=== PATIENT | female | born 1975 | race Caucasian/White ===

== ENCOUNTER 2017-04-06 10:36 | Inpatient (IN) | payer OTHER ==
[2017-04-06] MEDS ORDERED: ONDANSETRON HCL INJ/PF 4 MG/2 ML SDV IV ONE ×2 (11:39→14:02)
[2017-04-06] MEDS ORDERED: HYDROMORPHONE HCL INJ/PF 2 MG/ML AMPULE IV ONE (11:39)
[2017-04-06] MEDS ORDERED: NORMAL SALINE 1000 ML 1,000 ML IV PRN ×2 (11:39→15:59)
--- NOTE | 2017-04-06 11:43 | ER Document Report ---
ED Medical Screen (RME) - General Chief Complaint: Abdominal Pain Stated Complaint: NAUSEA/WEAKNESS Time Seen by Provider: 04/06/17 11:33 Mode of Arrival: Ambulatory Information source: [facility], [facility] TRAVEL OUTSIDE OF THE [place] IN LAST 30 DAYS: No - HPI Onset: Other - 4 days Onset/Duration: Gradual, Constant Quality of pain: Dull Severity: Moderate Associated Symptoms: Nausea, Vomiting Exacerbated by: Denies Relieved by: Denies Notes: 04/06/17 11:40 Patient is a healthy 41-year-old female who does not drink alcohol. Patient presents with a four-day history of worsening right upper quadrant abdominal pain associated with nausea and vomiting along with yellow colored sclera and yellow tinted skin. Patient denies any prior history of liver problems in the past. Patient denies any excess excess acetaminophen use. No recent travel, bad food exposure. Patient went to the [facility] yesterday and was told to come to the emergency department here for further management. She had not any fevers or chills. - Related Data Allergies/Adverse Reactions: hydrocodone bitartrate [From Vicodin] Allergy (Verified 04/06/17 10:45) morphine [Morphine] Allergy (Verified 04/06/17 10:45) Past Medical History - General Information source: Patient, [facility] Records - Social History Chew tobacco use (# tins/day): No Frequency of alcohol use: Rare Drug Abuse: None Neurological Medical History: Denies: Hx Seizures Renal/ Medical History: Reports: Hx Kidney Stones. Denies: Hx Peritoneal Dialysis Musculoskeltal Medical History: Reports Hx Fibromyalgia Psychiatric Medical History: Reports: Hx Attention Deficit Hyperactivity Disorder, Hx Bipolar Disorder Traumatic Medical History: Reports: Hx Fractures Past Surgical History: Reports: Hx Abdominal Surgery - diverticulum, Hx Genitourinary Surgery - urethra-2005,, Hx Gynecologic Surgery - anterior repair with sling, Hx Hysterectomy - 2009. Denies: Hx Pacemaker - Immunizations Immunizations up to date: Yes Hx Diphtheria, Pertussis, Tetanus Vaccination: Yes Review of Systems - Review of Systems Gastrointestinal: Abdominal pain, Nausea, Vomiting Skin: Change in color -: Yes All other systems reviewed and negative Physical Exam - Vital signs Vitals: Temp Pulse Resp BP Pulse Ox 97.8 F 109 H 20 105/61 98 04/06/17 10:45 04/06/17 10:45 04/06/17 10:45 04/06/17 10:45 04/06/17 10:45 Interpretation: Normal - General General appearance: Appears well, Alert - HEENT Head: Normocephalic, Atraumatic Eyes: Normal Conjunctiva: Icteric Pupils: PERRL - Respiratory Respiratory status: No respiratory distress Chest status: Nontender Breath sounds: Normal Chest palpation: Normal - Cardiovascular Rhythm: Regular Heart sounds: Normal auscultation Murmur: No - Abdominal Inspection: Normal Distension: No distension, Other Tenderness: Tender - Right upper quadrant. No: Guarding, Rebound - Extremities General upper extremity: Normal inspection, Nontender, Normal color, Normal ROM , Normal temperature General lower extremity: Normal inspection, Nontender, Normal color, Normal ROM , Normal temperature, Normal weight bearing. No: Kathy's sign - Neurological Neuro grossly intact: Yes Cognition: Normal Orientation: AAOx4 Mendenhall Coma Scale Eye Opening: Spontaneous Esther Coma Scale Verbal: Oriented Mendenhall Coma Scale Motor: Obeys Commands Mendenhall Coma Scale Total: 15 Speech: Normal Motor strength normal: LUE, RUE, LLE, RLE Sensory: Normal - Skin Skin Temperature: Warm Skin Moisture: Dry Skin Color: Jaundiced Course - Re-evaluation Re-evalutation: 04/06/17 11:42 Patient with new onset scleral icterus, jaundiced appearing skin. Likely related to common bile duct problem. Patient will require labs, ultrasound, and further management and disposition by ED provider in the back treatment area. - Vital Signs Vital signs: Temp Pulse Resp BP Pulse Ox 97.8 F 109 H 20 105/61 98 04/06/17 10:45 04/06/17 10:45 04/06/17 10:45 04/06/17 10:45 04/06/17 10:45
[2017-04-06 12:21] LABS: PROTHROMBIN TIME 14.1 SEC (11.4-15.4)
[2017-04-06 12:27] LABS: HEMATOCRIT 44.9 % (36.0-47.0); HEMOGLOBIN 14.6 g/dL (12.0-15.5); HGB HCT DIFFERENCE -1.1; MEAN CORPUSCULAR HEMOGLOBIN 29.1 pg (27.0-33.4); MEAN CORPUSCULAR HGB CONC 32.5 g/dL (32.0-36.0); MEAN CORPUSCULAR VOLUME 89 fl (80-97); RED BLOOD COUNT 5.02 10^6/uL (3.72-5.28); RED CELL DISTRIBUTION WIDTH 16.5 % (11.5-14.0); WHITE BLOOD COUNT 9.9 10^3/uL (4.0-10.5)
--- NOTE | 2017-04-06 12:30 | ER Document Report ---
ED GI/ - General Chief Complaint: Abdominal Pain Stated Complaint: NAUSEA/WEAKNESS Time Seen by Provider: 04/06/17 11:33 Mode of Arrival: Ambulatory Notes: Patient says that she noticed that her skin was beginning to turn yellow 3 or 4 days ago. She is also noted her urine turning dark and she has had pain across the upper abdomen, slightly more so on the right side than the left side. She has been itching a lot and also felt very tired. She has been nauseated with a couple of vomiting, but mostly just nausea. She has had "stringy" looking stools. Think she may have had a fever the first couple of days, but not currently. Patient has never had this happen before. She does not drink alcohol. Has not been on any new medications. Patient says she did eat sushi from the grocery store about 1 week ago, last or Tuesday. PMH: Surgeries include hysterectomy, anterior abdominal tuck and bladder sling. Diverticulitis. PMH: ADHD. TRAVEL OUTSIDE OF THE [place] IN LAST 30 DAYS: No - Related Data Allergies/Adverse Reactions: hydrocodone bitartrate [From Vicodin] Allergy (Verified 04/06/17 10:45) morphine [Morphine] Allergy (Verified 04/06/17 10:45) Past Medical History - General Information source: Patient, [facility] Records - Social History Smoking Status: Current Every Day Smoker Chew tobacco use (# tins/day): No Frequency of alcohol use: Rare Drug Abuse: None Family History: Reviewed & Not Pertinent Patient has suicidal ideation: No Patient has homicidal ideation: No Neurological Medical History: Denies: Hx Seizures Renal/ Medical History: Reports: Hx Kidney Stones Musculoskeltal Medical History: Reports Hx Fibromyalgia Psychiatric Medical History: Reports: Hx Attention Deficit Hyperactivity Disorder, Hx Bipolar Disorder Traumatic Medical History: Reports: Hx Fractures Past Surgical History: Reports: Hx Abdominal Surgery - diverticulum, Hx Genitourinary Surgery - urethra-2005,, Hx Gynecologic Surgery - anterior repair with sling, Hx Hysterectomy - 2009. Denies: Hx Pacemaker - Immunizations Immunizations up to date: Yes Hx Diphtheria, Pertussis, Tetanus Vaccination: Yes Review of Systems - Review of Systems Notes: REVIEW OF SYSTEMS: CONSTITUTIONAL : Denies fever. EENT: Denies eye, ear, nose or mouth or throat pain or other symptoms. CARDIOVASCULAR: Denies chest pain. RESPIRATORY: Denies cough, chest congestion, or shortness of breath. GASTROINTESTINAL: See HPI. GENITOURINARY: Denies difficulty or painful urinating, urinary frequency, blood in urine. Urine very dark. MUSCULOSKELETAL: Denies back or neck pain. Denies joint pain or swelling. SKIN: Denies rash or skin lesions. See HPI. NEUROLOGICAL: Denies LOC or altered mental status. Denies headache. Denies sensory loss or motor deficits. ALL OTHER SYSTEMS REVIEWED AND NEGATIVE. Physical Exam - Vital signs Vitals: Temp Pulse Resp BP Pulse Ox 97.8 F 109 H 20 105/61 98 04/06/17 10:45 04/06/17 10:45 04/06/17 10:45 04/06/17 10:45 04/06/17 10:45 Interpretation: Normal, Tachycardic - Mild - Notes Notes: PHYSICAL EXAMINATION: GENERAL: Well-appearing, in no acute distress. Generalized yellow color of her skin, sclera, etc. HEAD: Atraumatic, normocephalic. EYES: Pupils equal round and reactive to light, extraocular movements intact. ENT: oropharynx clear without exudates. Moist mucous membranes. NECK: Normal range of motion, supple. LUNGS: Breath sounds clear and equal bilaterally. HEART: Regular rate and rhythm without murmurs. ABDOMEN: Soft, some tenderness in the right upper quadrant, but no guarding or rebound. BACK: No tenderness throughout entire back. EXTREMITIES: Normal range of motion without pain. NEUROLOGICAL: Normal speech, normal gait. Normal sensory, motor, and reflex exams. Awake, alert, and oriented x3. Cranial nerves normal. PSYCH: Normal mood, normal affect. SKIN: Warm, dry, no rashes. Generalized jaundice. Course - Re-evaluation Re-evalutation: 04/06/17 14:50 Patient's labs showed elevated bilirubin and mild elevation of her enzymes. Lipase normal. Spoke with hospitalist who will admit patient. - Vital Signs Vital signs: Temp Pulse Resp BP Pulse Ox 97.8 F 109 H 20 105/61 97 04/06/17 10:45 04/06/17 10:45 04/06/17 10:45 04/06/17 10:45 04/06/17 13:33 - Laboratory Result Diagrams: 04/06/17 11:55 04/06/17 11:55 Laboratory results interpreted by me: 04/06/17 04/06/17 04/06/17 11:53 11:55 11:55 RDW 16.5 H Band Neutrophils % 1 L Total Bilirubin 16.2 H Direct Bilirubin 14.3 H AST 1201 H ALT 1218 H Alkaline Phosphatase 189 H Total Protein 8.8 H Urine Blood SMALL H Urine Bilirubin MODERATE H Urine Urobilinogen 4.0 H Ur Leukocyte Esterase TRACE H Acetaminophen < 10 L - Diagnostic Test Radiology reviewed: Image reviewed, Reports reviewed - Ultrasound of the abdomen is normal. Discharge - Discharge Clinical Impression: Jaundice Condition: Stable Disposition: ADMITTED INPATIENT Admitting Provider: Hospitalist Unit Admitted: Telemetry
[2017-04-06 12:33] LABS: APPEARANCE,URINE SLIGHTLY-CLOUDY; BILIRUBIN,URINE MODERATE (NEGATIVE); GLUCOSE, URINE NEGATIVE (NEGATIVE); KETONES,URINE NEGATIVE (NEGATIVE); LEUKOCYTE ESTERASE,URINE TRACE (NEGATIVE); NITRITE,URINE NEGATIVE (NEGATIVE); PROTEIN,URINE NEGATIVE (NEGATIVE)
[2017-04-06 12:39] LABS: ALBUMIN 4.2 g/dL (3.5-5.0); ALKALINE PHOSPHATASE 189 U/L (38-126); ANION GAP 14 (5-19); BILIRUBIN,DIRECT 14.3 mg/dL (0.0-0.4); BILIRUBIN,TOTAL 16.2 mg/dL (0.2-1.3); BLOOD UREA NITROGEN 11 mg/dL (7-20); CALCIUM 9.7 mg/dL (8.4-10.2); CARBON DIOXIDE 30 mmol/L (22-30); CHLORIDE 100 mmol/L (98-107); CREATININE RESULT 0.55 mg/dL (0.52-1.25); GLUCOSE 109 mg/dL (75-110); LIPASE 46.5 U/L (23-300); POTASSIUM 3.9 mmol/L (3.6-5.0); SODIUM 143.6 mmol/L (137-145); TOTAL PROTEIN 8.8 g/dL (6.3-8.2)
[2017-04-06 12:50] LABS: ALANINE AMINOTRANSFERASE 1218 U/L (9-52); ASPARTATE AMINO TRANSFERASE 1201 U/L (14-36)
[2017-04-06 13:01] LABS: BAND NEUTROPHILS % (MANUAL) 1 % (3-5); BASOPHILS % (MANUAL) 1 % (0-2); EOSINOPHILS % (MANUAL) 1 % (0-6); LYMPHOCYTES % (MANUAL) 13 % (13-45); TOTAL CELLS COUNTED 100
[2017-04-06 13:02] LABS: ANISOCYTOSIS 1+; HYPOCHROMASIA 2+; ROULEAUX SLIGHT; TARGET CELLS 2+; TOXIC GRANULATION SLIGHT; TOXIC VACUOLATION PRESENT
--- NOTE | 2017-04-06 13:30 | RADIOLOGY REPORT (SQ) ---
EXAM DESCRIPTION: U/S ABDOMEN LIMITED W/O DOP COMPLETED DATE/TIME: 04/06/2017 1:13 pm REASON FOR STUDY: RUQ abd pain COMPARISON: None. TECHNIQUE: Dynamic and static grayscale images acquired of the abdomen and recorded on PACS. Additio nal selected color Doppler and spectral images recorded. LIMITATIONS: None. FINDINGS: PANCREAS: No masses. Visualized pancreatic duct normal caliber. LIVER: No masses. Echotexture normal. LIVER VASCULATURE: Normal directional flow of the main portal vein and hepatic veins. GALLBLADDER: No stones. Normal wall thickness. No pericholecystic fluid. ULTRASOUND-DETECTED BHARDWAJ'S SIGN: Negative. INTRAHEPATIC DUCTS AND COMMON DUCT: CBD and intrahepatic ducts normal caliber. No filling defects. INFERIOR VENA CAVA: Normal flow. AORTA: No aneurysm. RIGHT KIDNEY: Normal size. Normal echogenicity. No solid or suspicious masses. No hydronephrosis. No calcifications. PERITONEAL AND RIGHT PLEURAL SPACE: No ascites or effusions. OTHER: Images of the right lower quadrant are unremarkable. IMPRESSION: NORMAL RIGHT UPPER QUADRANT ULTRASOUND. TECHNICAL DOCUMENTATION: JOB ID: [id number]- All Rights Reserved
--- NOTE | 2017-04-06 14:49 | Progress Note ---
Provider Note Provider Note: ALBINA EDWARD Search Criteria: Last Name 'Albina' and First Name 'Neris' and = and Request Period = 10/08/16' to 04/06/17' - 3 out of 3 Recipients Selected. Fill Date Product, Str, Form Qty Days Pt ID Prescriber Written RX# N/R* Pharm MED+ ------ ---- --------- --- ------- ----- --------- ------ 03/31/2017 ZOLPIDEM TARTRATE 10 MG TABLET 15.00 30 [id number] 2016 [id number] N [id number] 00.0 02/09/2017 ZOLPIDEM TARTRATE 10 MG TABLET 15.00 30 [id number] 2016 [id number] N [id number] 00.0 02/08/2017 D-AMPHETAMINE ER 10 MG CAPSULE 90.00 30 [id number] 2016 [id number] N [id number] 00.0 *N/R N=New R=Refill +MED Daily Prescribers for prescriptions listed [id number] [facility]; [facility], [address] [place] [address] Pharmacies that dispensed prescriptions listed [id number] [facility]; [facility], [address] [place] [address],
[2017-04-06] MEDS ORDERED: OXYCODONE HCL IR 5 MG TABLET PO ONE (14:52)
[2017-04-06] MEDS ORDERED: PROMETHAZINE HCL 25 MG SUPP.RECT PR PRN (16:00)
[2017-04-06] MEDS ORDERED: NICOTINE 21 MG/24 HR PATCH.TD24 TD PRN (16:15)
[2017-04-06 17:04] LABS: URINE BARBITURATES SCREEN NEGATIVE; URINE OPIATES LOW UNCONFIRMED POSITIVE; URINE PHENCYCLIDINE SCREEN NEGATIVE
[2017-04-06 17:10] LABS: URINE METHADONE SCREEN NEGATIVE
--- NOTE | 2017-04-06 18:02 | PDOC CONSULTATION ---
Consultation Consult Date: 04/06/17 Attending physician:: MARY VICTORIA Consult reason:: Abnormal LFT's History of Present Illness Admission Date/PCP: 04/06/17 14:41 History of Present Illness: CHEYANNE MONTEMAYOR is a 41 year old female I am asked to see this patient by the Hospitalist service patient presented with jaundice with abdominal pain, nausea and vomiting patient has abnormal LFT , especially with transaminases> 1000 tylenol level was normal patient states has itching, has elevated total bilirubin but her alk phos is high too patient states does not drink no previous episodes Coagulation profile is normal denies sustaining any trauma patient did have some sushi in the past ultrasound does not show any dilated ducts patient has an MRCP pending there is a history of kidney stone as well patient denies consuming any other OTC products. Hepatitis panels are pending as well states that she always has had stomach trouble as well Past Medical History Neurological Medical History: Denies: Seizures Musculoskeltal Medical History: Reports: Fibromyalgia Psychiatric Medical History: Reports: Attention Deficit Hyperactivity Disorder, Bipolar Disorder Past Surgical History Past Surgical History: Reports: Hysterectomy - 2010 Denies: Pacemaker Social History Smoking Status: Current Every Day Smoker Frequency of Alcohol Use: None Hx Recreational Drug Use: No Hx Prescription Drug Abuse: No Family History Family History: Reviewed & Not Pertinent Parental Family History Reviewed: Yes Children Family History Reviewed: Unknown Sibling(s) Family History Reviewed.: Unknown Medication/Allergy Allergies/Adverse Reactions: hydrocodone bitartrate [From Vicodin] Allergy (Verified 04/06/17 10:45) morphine [Morphine] Allergy (Verified 04/06/17 10:45) Review of Systems Constitutional: ABSENT: fever(s), headache(s), night sweats, weakness Eyes: ABSENT: visual disturbances Ears: ABSENT: hearing changes Nose, Mouth, and Throat: ABSENT: mouth pain, sore throat Cardiovascular: ABSENT: edema, orthropnea, palpitations Respiratory: ABSENT: dyspnea, hemoptysis Gastrointestinal: PRESENT: nausea, vomiting. ABSENT: diarrhea, hematemesis, melena Genitourinary: ABSENT: dysuria, hematuria Musculoskeletal: ABSENT: joint swelling Integumentary: PRESENT: pruritus Neurological: ABSENT: syncope, tingling, tremor(s), vertigo Endocrine: ABSENT: polydipsia, polyphagia, polyuria Hematologic/Lymphatic: ABSENT: easy bruising Physical Exam Vital Signs: Temp Pulse Resp BP Pulse Ox 97.8 F 109 H 20 98/70 L 98 04/06/17 10:45 04/06/17 10:45 04/06/17 10:45 04/06/17 16:15 04/06/17 16:15 General appearance: PRESENT: no acute distress, cooperative, well-developed, well-nourished Head exam: PRESENT: atraumatic, normocephalic Eye exam: PRESENT: EOMI, PERRLA, scleral icterus. ABSENT: nystagmus, periorbital swelling Mouth exam: PRESENT: moist, neck supple Throat exam: ABSENT: tonsillar exudate, tonsillogmegaly Neck exam: ABSENT: meningismus, tenderness, thyromegaly Respiratory exam: PRESENT: symmetrical, unlabored. ABSENT: tachypnea, wheezes Cardiovascular exam: PRESENT: RRR, +S1, +S2 GI/Abdominal exam: PRESENT: soft. ABSENT: Gonzalez's sign, rebound, rigid, tenderness Extremities exam: ABSENT: joint swelling Musculoskeletal exam: PRESENT: full ROM Neurological exam: PRESENT: oriented to time, oriented to situation, reflexes normal, CN II-XII grossly intact Focused psych exam: ABSENT: restlessness Skin exam: PRESENT: jaundice. ABSENT: mottled, urticaria, vesicles Results Laboratory Results: 04/06/17 16:43 Ammonia 17.4 04/06/17 16:43 Creatine Kinase 26 L Impressions: Abdomen Ultrasound 04/06/17 11:38 IMPRESSION: NORMAL RIGHT UPPER QUADRANT ULTRASOUND. Assessment & Plan - Diagnosis (1) Jaundice Plan: transaminases tend to be a little lower for viral hepatitis however will continue to follow, results are pending would check for AMA as well since has elevated alk phos agree with MRCP as well to rule out stone disease there does not appear to have a obvious causative factor spoke with Ms Mosqueda with respect to the case will await results from tests that are already ordered - Time Time Spent: 50 to 70 Minutes
--- NOTE | 2017-04-06 21:09 | HISTORY AND PHYSICAL E ---
History and Physical NAME: CHEYANNE MONTEMAYOR : 1975 AGE: 41Y ADMITTED: 04/06/2017 ROOM: 436 PRIMARY CARE PROVIDER: MELITON. CHIEF COMPLAINT: Jaundice. HISTORY OF PRESENT ILLNESS: The patient is a 41-year-old female with a past medical history that is essentially unremarkable. The patient presented to the emergency department with what she describes is a 3-4 day history of increasing jaundice, abdominal pain, and nausea and vomiting. The patient stated that she had an abrupt onset of symptoms including fatigue, weakness as well as feeling itchy all over but no area of actual pruritus. The patient states that for the past 7 days that she had been preparing a large amount of raw salsa for her family to consume that included raw onions. She was uncertain of the source of these onions. The patient denied feeling that any particular meal was suspect; however, her symptoms have persisted. The patient denied any sick contacts. No one else has been sick. The patient still has her gallbladder. Upon presentation to the emergency department the patient was found to be tachycardic with a heart rate of 110, afebrile. The blood pressure was in a good range. Acetaminophen level was undetectable; however, her bilirubin was found to be 16.2 and her AST 1200, ALT also 1200 with an alkaline phosphatase of 189. The patient did have stat HIT panels drawn and has been referred to the hospital for admission and management. The patient's ultrasound was unremarkable. PAST MEDICAL HISTORY: Remarkable for: 1. Nephrolithiasis. 2. 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 3. Tobacco dependency. PAST SURGICAL HISTORY: Remarkable for: 1. Tubal ligation. 2. Ectopic . 3. Tummy tuck. 4. Bladder sling. ALLERGIES: 1. HYDROCODONE. 2. MORPHINE. HOME MEDICATIONS: 1. Iwka-xvx-sntcaex ibuprofen. 2. Hziw-qjv-trdktvd Tylenol as needed. SOCIAL HISTORY: The patient currently resides at home with her boyfriend, Dilcia Blackwood, who can be reached at [phone]. The patient has designated him as her surrogate decision maker given that she is estranged from her family. The patient is a smoker. She smokes approximately a pack a day for which she has for 25 years. The patient denies any alcohol abuse and rarely consumes alcohol at all. Denies any history of illicit drug use, no IV drug use ever. FAMILY MEDICAL HISTORY: Family medical history is very vague given the patient's estrangement from her family. However, she does make mention that she feels her mother has a lot of stomach issues. She did have 2 aunts who decreased of unknown cancers. The patient is unable to provide any history about any other family members due to estrangement. REVIEW OF SYSTEMS: CONSTITUTIONAL: The patient denies any fevers or chills, no dizziness, positive for weakness but has mentioned a decent appetite. INTEGUMENTARY: Denies any diaphoresis, rash or bruising. Positive for itching and jaundice. HEENT: Denies any vision or hearing loss, nasal drainage, sore throat, or headache. CARDIOVASCULAR: Denies any shortness of breath, chest pain, edema, or heart palpitations. RESPIRATORY: Denies any cough, sputum production or hemoptysis. GASTROINTESTINAL: Denies any hematemesis, constipation, melena, hematochezia. Positive for nausea, vomiting, diarrhea and abdominal pain. GENITOURINARY: Denies any hematuria, pyuria or dysuria. Does admit to dark colored urine. MUSCULOSKELETAL: Denies any acute or chronic joint pains. NEUROLOGIC: No seizures, tremors or loss of consciousness. HEMATOLOGICAL: The patient denies any gianni bleeding or easy bruising. ENDOCRINE: Denies any recent weight changes. PSYCHIATRIC: Denies suicidal or homicidal ideation. The rest of the review of the other organ systems is negative. PHYSICAL EXAMINATION: GENERAL: On examination, the patient is a well-developed, well-nourished 41-year-old female who is awake, alert and oriented to person, place, time and situation. She is verbal and conversational, ambulatory and does not appear to be in any acute distress. VITAL SIGNS: Temperature 97.8, pulse 109, respirations 20, blood pressure 105/61, oxygen saturation is 98% on room air. SKIN: Warm and dry. No rash. She is not diaphoretic or jaundiced. HEENT: Pupils are equal, round, and reactive to light and accommodation. Conjunctivae is pink. Sclerae is icteric. There are no mouth lesions. Tongue is midline. NECK: Supple. There is no JVD. No palpable lymphadenopathy or thyromegaly. CARDIOVASCULAR: Heart is regular. There is no murmur or rub. CHEST: Clear, symmetrical and unlabored. ABDOMEN: Diffusely tender. There is no area of focal tenderness. Mildly distended. Bowel sounds are present. There is palpable hepatomegaly. BACK: No CVA tenderness or sacral edema. EXTREMITIES: No clubbing, cyanosis or edema or peripheral signs of embolization. There are +2 pedal pulses are noted bilaterally. PSYCHIATRIC: Appropriate affect. Pleasant mood. NEUROLOGIC: Cranial nerves II-XII are grossly intact. DIAGNOSTICS: Labs are as follows: Hematology obtained on 04/06/2017: WBC 9.9, hemoglobin 14.6, hematocrit 44.9, platelet count is 416,000. Coagulation obtained on 04/06/2017: PT 14.1, INR 1.02. Chemistry obtained on 04/06/2017: Sodium 136, potassium 3.9, chloride 109, carbon dioxide 30, BUN 11, creatinine 0.75, glucose 109, calcium 9.7, bilirubin 16.2, direct bilirubin 14.3, AST 1201, ALT 1218, alk phos 189, total protein 8.8, albumin 4.2, lipase is 46.5. Urinalysis obtained on 04/06/2017: Color sia, appearance slightly cloudy, pH 6.0, specific gravity is 1.020, protein negative, glucose negative, ketones negative, occult blood small, nitrite negative, bilirubin moderate, urobilinogen 4.0, leukocyte esterase is trace, WBC 15, RBC 3, bacteria trace, epithelial squamous 15, mucus rare, ascorbic acid is negative. Toxicology obtained on 04/06/2017: Acetaminophen less than 10. Serology obtained on 04/06/2017: Hepatitis panel is pending. Abdominal ultrasound obtained on 04/06/2017 reveals a normal right upper quadrant ultrasound. IMPRESSION AND PLAN: 1. Abnormal LFTs with jaundice, possible acute hepatic failure. Fortunately, the patient's coags are unremarkable. The patient does have significant abdominal pain with nausea and vomiting as well. We will obtain a stat MRCP of the area and evaluate accordingly. We will await hepatitis panels and continue supportive therapy. The patient denies any trauma as well. Will consult GI for input and add on IgG as well and follow. Will aggressively hydrate, add IV p.r.n. antiemetics and IV pain medication. 2. Tobacco dependency. Spent 3 minutes discussing smoking cessation education. The patient declines any pharmacological intervention at this time, however, will add p.r.n. nicotine patch. 3. DVT Prophylaxis. The patient is ambulatory. Will add LUDWIG hose. Defer pharmacological prophylaxis given potential hepatic compromise. DISPOSITION: The patient is a FULL CODE. Pending patient's symptomatology and diagnostic findings, will evaluate in the a.m. Will admit the patient to inpatient telemetry, as the patient's expected length of stay will surpass 2 midnights. Time spent on this admission including assessment, plan, physical examination, patient education and research is 60 minutes. DICTATING PHYSICIAN: PATI EAGLE NP [id number] PHY#: [id number] ID: [id number] JOB#: [id number] ACCT: [id number] cc:PATI EAGLE NP >
--- NOTE | 2017-04-06 21:46 | RADIOLOGY REPORT (SQ) ---
EXAM DESCRIPTION: MRI ABDOMEN WITHOUT COMPLETED DATE/TIME: 04/06/2017 8:49 pm REASON FOR STUDY: MRCP-acute liver failure COMPARISON: None. TECHNIQUE: Noncontrast MRCP. Source and MIP images reviewed. LIMITATIONS: None. FINDINGS: GALLBLADDER: Normal. INTRAHEPATIC DUCTS: Nondilated. EXTRAHEPATIC DUCTS: Common duct is normal caliber. No dilatation of the pancreatic duct. No ductal filling defects noted. PANCREAS: Generally homogeneous, no gross mass or significant signal alteration. No surrounding infl ammatory changes or fluid. Pancreatic duct is normal. LIVER, SPLEEN, KIDNEYS, ADRENALS: No significant abnormality. VESSELS: No evidence of aneurysm. Grossly appropriate flow voids in the major vascular structures. LUNG BASES: Grossly clear. OTHER: No other significant finding. IMPRESSION: NORMAL HEPATOBILIARY SYSTEM. NO STONES OR COMMON DUCT ABNORMALITIES. TECHNICAL DOCUMENTATION: JOB ID: [id number] All Rights Reserved
[2017-04-06] MEDS: KETOROLAC TROMETHAMINE INJ/PF 30 MG/1 ML SDV IV PRN (23:05)
[2017-04-06] MEDS: ONDANSETRON HCL INJ/PF 4 MG/2 ML SDV IV PRN (23:05)
[2017-04-07 06:58] LABS: HEMATOCRIT 40.4 % (36.0-47.0); HEMOGLOBIN 13.6 g/dL (12.0-15.5); HGB HCT DIFFERENCE 0.4; MEAN CORPUSCULAR HEMOGLOBIN 29.4 pg (27.0-33.4); MEAN CORPUSCULAR HGB CONC 33.6 g/dL (32.0-36.0); MEAN CORPUSCULAR VOLUME 87 fl (80-97); RED BLOOD COUNT 4.63 10^6/uL (3.72-5.28); RED CELL DISTRIBUTION WIDTH 16.3 % (11.5-14.0); WHITE BLOOD COUNT 6.9 10^3/uL (4.0-10.5)
[2017-04-07 07:33] LABS: BLOOD UREA NITROGEN 8 mg/dL (7-20); CALCIUM 8.9 mg/dL (8.4-10.2); CREATININE RESULT 0.52 mg/dL (0.52-1.25); GLUCOSE 91 mg/dL (75-110)
[2017-04-07 07:34] LABS: ALANINE AMINOTRANSFERASE 844 U/L (9-52); ALBUMIN 3.3 g/dL (3.5-5.0); ALKALINE PHOSPHATASE 160 U/L (38-126); ANION GAP 8 (5-19); BILIRUBIN,DIRECT 11.2 mg/dL (0.0-0.4); CARBON DIOXIDE 26 mmol/L (22-30); CHLORIDE 109 mmol/L (98-107); LIPASE 47.2 U/L (23-300); SODIUM 143.4 mmol/L (137-145); TOTAL PROTEIN 6.9 g/dL (6.3-8.2)
[2017-04-07 07:54] LABS: BILIRUBIN,TOTAL 13.3 mg/dL (0.2-1.3)
[2017-04-07] MEDS: ONDANSETRON HCL INJ/PF 4 MG/2 ML SDV IV PRN ×3 (07:59→20:46)
[2017-04-07 08:06] LABS: ASPARTATE AMINO TRANSFERASE 826 U/L (14-36)
[2017-04-07] MEDS ORDERED: TRAZODONE HCL 50 MG TABLET PO PRN (08:08)
[2017-04-07] MEDS ORDERED: (PENDING PHARMACY ID) (Quetiapine Fumarate [Seroquel] 50 MG) PO PRN (08:08)
[2017-04-07] MEDS: KETOROLAC TROMETHAMINE INJ/PF 30 MG/1 ML SDV IV PRN (08:12)
[2017-04-07] MEDS ORDERED: QUETIAPINE FUMARATE 25 MG TABLET PO PRN (08:20)
[2017-04-07] MEDS ORDERED: NORMAL SALINE 1000 ML 1,000 ML IV PRN (08:21)
--- NOTE | 2017-04-07 08:59 | PROGRESS NOTE E ---
Progress Note NAME: CHEYANNE MONTEMAYOR : 1975 AGE: 41Y DATE: 04/07/2017 ROOM: 436 SUBJECTIVE: The patient is sitting up in bed. She states that she has had ongoing nausea throughout the night and still has significant number of stools. However, the patient generally feels a little better. The patient denies any shortness of breath, dizziness, chest pain, no fever or chills. The patient has been afebrile. Her blood pressures have been in a good range, and the patient does not voice any other concerns at this time. REVIEW OF SYSTEMS: Rest of review of systems is negative. MEDICATIONS: Medications have been reviewed. OBJECTIVE: GENERAL: The patient is a 41-year-old female who is awake, alert and oriented to person, place, time and situation. She is verbal, conversational, ambulatory and does to appear to be in any acute distress. VITAL SIGNS: Temperature is 98.0, pulse 65, respirations 18, blood pressure 135/59, oxygen saturation is 94% on room air. SKIN: Pale and dry. No rashes, not diaphoretic. HEENT: Pupils are equal, round, reactive to light and accommodation. Sclerae are icteric. NECK: There is no JVP. CARDIOVASCULAR: Heart is regular. There is no murmur or rub. CHEST: Clear, symmetrical, and unlabored. ABDOMEN: Diffusely tender, mildly distended but bowel sounds are present. BACK: No CVA tenderness or sacral edema. EXTREMITIES: No clubbing, cyanosis or edema. PSYCHIATRIC: Appropriate affect, pleasant mood. DIAGNOSTICS: Labs are as follows: Hematology obtained on 04/07/2017: WBC 6.9, hemoglobin 13.6, hematocrit 40.9, platelet count is 326,000. Chemistry obtained on 04/07/2017: Sodium 143, potassium 4.0, chloride 109, carbon dioxide 26, BUN 8, creatinine 0.52, glucose 91, calcium 8.9, bilirubin 13.3, direct bilirubin 11.2, AST 826, ALT 844, alk phos 160, CK 26, total protein 6.9, albumin 3.3, lipase is 47.2, immunoglobulin G is still pending. IMPRESSION AND PLAN: 1. ACUTE HEPATITIS. Feel this is most likely viral given that the patient's MRCP is unremarkable. The patient has been eating a large volume of raw onions, therefore, suspicion for hepatitis A. LFTs have improved overnight. Will continue supportive therapy including antiemetics. Will add probiotic given the patient's diarrhea as well as stool studies and follow. Do appreciate GI's input with this. 2. TOBACCO DEPENDENCY. Will continue p.r.n. nicotine patch. 3. ANXIETY. Will continue the patient's home medications. 4. DVT PROPHYLAXIS. The patient is ambulatory. Will continue LUDWIG hose. Will encourage the patient to ambulate t.i.d. in the hallway. DISPOSITION: The patient is a FULL CODE. Pending patient's symptomatology and diagnostic findings, will reevaluate in the a.m. Time spent on this admission including assessment, plan, physical examination, and patient education is 25 minutes. DICTATING PHYSICIAN: PATI EAGLE NP [id number] PHY#: [id number] ID: [id number] JOB#: [id number] ACCT: [id number] cc: >
[2017-04-07] MEDS: SERTRALINE HCL 50 MG TABLET PO SCH (09:27)
[2017-04-07] MEDS: OXCARBAZEPINE 150 MG TABLET PO SCH ×2 (09:28→17:56)
[2017-04-07] MEDS: TRAZODONE HCL 50 MG TABLET PO SCH (09:28)
[2017-04-07] MEDS: LACTOBACILLUS ACIDOPHILUS 250 MG TAB PO SCH ×2 (09:28→17:55)
[2017-04-07] MEDS ORDERED: KETOROLAC TROMETHAMINE INJ/PF 30 MG/1 ML SDV IV PRN (14:44)
--- NOTE | 2017-04-07 14:47 | PDOC PROGRESS REPORT ---
Subjective Progress Note for:: 04/07/17 Subjective:: Patient's liver enzymes have trended down this morning. Her MRCP findings are negative. There are no dilated biliary ducts. Her hepatitis panels are noted to have positive antibody for hepatitis C. She will need to have her HCV RNA to be quantified. Reflex testing for the genotype should also be done. Otherwise she is improved somewhat Still is otherwise jaundice Total bilirubin is down She still has itching Physical Exam Vital Signs: Temp Pulse Resp BP Pulse Ox 97.9 F 68 18 114/59 L 98 04/07/17 12:36 04/07/17 12:36 04/07/17 12:36 04/07/17 12:36 04/07/17 12:36 Intake & Output 04/06/17 04/07/17 04/08/17 06:59 06:59 06:59 Intake Total 1600 Balance 1600 Weight 82.4 kg General appearance: PRESENT: no acute distress, well-developed, well-nourished Head exam: PRESENT: atraumatic, normocephalic Eye exam: PRESENT: EOMI, PERRLA, scleral icterus. ABSENT: nystagmus, periorbital swelling Mouth exam: PRESENT: moist Throat exam: ABSENT: tonsillar exudate, tonsillogmegaly Neck exam: ABSENT: meningismus, tenderness, thyromegaly Respiratory exam: PRESENT: symmetrical, unlabored. ABSENT: tachypnea, wheezes Cardiovascular exam: PRESENT: RRR, +S1, +S2 GI/Abdominal exam: PRESENT: soft. ABSENT: rebound, rigid, tenderness Extremities exam: ABSENT: joint swelling Musculoskeletal exam: PRESENT: full ROM Neurological exam: PRESENT: alert, awake, oriented to person, oriented to place , oriented to time, oriented to situation Skin exam: PRESENT: normal color. ABSENT: mottled, pallor, petechiae Results Laboratory Results: 04/07/17 06:48 04/07/17 06:48 04/06/17 04/07/17 04/07/17 16:43 06:48 06:48 WBC 6.9 RBC 4.63 Hgb 13.6 Hct 40.4 MCV 87 MCH 29.4 MCHC 33.6 RDW 16.3 H Plt Count 326 Sodium 143.4 Potassium 4.0 Chloride 109 H Carbon Dioxide 26 Anion Gap 8 BUN 8 Creatinine 0.52 Est GFR ( Amer) > 60 Est GFR (Non-Af Amer) > 60 Glucose 91 Calcium 8.9 Total Bilirubin 13.3 H D AST 826 H ALT 844 H Alkaline Phosphatase 160 H Ammonia 17.4 Total Protein 6.9 Albumin 3.3 L Lipase 47.2 Stool Occult Blood Stool for White Cells 04/07/17 04/07/17 12:40 12:40 WBC RBC Hgb Hct MCV MCH MCHC RDW Plt Count Sodium Potassium Chloride Carbon Dioxide Anion Gap BUN Creatinine Est GFR ( Amer) Est GFR (Non-Af Amer) Glucose Calcium Total Bilirubin AST ALT Alkaline Phosphatase Ammonia Total Protein Albumin Lipase Stool Occult Blood NEGATIVE Stool for White Cells NO WBCs SEEN 04/06/17 16:43 Creatine Kinase 26 L Impressions: Abdomen MRI 04/06/17 00:00 IMPRESSION: NORMAL HEPATOBILIARY SYSTEM. NO STONES OR COMMON DUCT ABNORMALITIES. Abdomen Ultrasound 04/06/17 11:38 IMPRESSION: NORMAL RIGHT UPPER QUADRANT ULTRASOUND. Assessment & Plan - Diagnosis (1) Jaundice Plan: For further testing showed a positive hepatitis C antibody. As noted above will need to check for HCV RNA as well as a genotype the operating is positive. MRCP is negative for retained stone. Other hepatitis panel negative. LFTs are trending down. She can be started on doxepin for itching. The liver functions continue to drop she likely can be discharged and followed as an outpatient. She likely will be a candidate for Harvoni treatment. We will continue to follow. - Time Time Spent with patient: 15-24 minutes
[2017-04-07] MEDS: OXYCODONE HCL IR 5 MG TABLET PO PRN ×2 (15:52→20:46)
[2017-04-07] MEDS: NICOTINE 21 MG/24 HR PATCH.TD24 TD PRN (15:53)
[2017-04-08] MEDS: OXYCODONE HCL IR 5 MG TABLET PO PRN ×5 (02:13→21:28)
[2017-04-08] MEDS: ONDANSETRON HCL INJ/PF 4 MG/2 ML SDV IV PRN ×5 (02:13→21:28)
[2017-04-08 05:02] LABS: HEMATOCRIT 35.4 % (36.0-47.0); HEMOGLOBIN 11.9 g/dL (12.0-15.5); HGB HCT DIFFERENCE 0.3; MEAN CORPUSCULAR HEMOGLOBIN 29.5 pg (27.0-33.4); MEAN CORPUSCULAR HGB CONC 33.7 g/dL (32.0-36.0); MEAN CORPUSCULAR VOLUME 88 fl (80-97); RED BLOOD COUNT 4.04 10^6/uL (3.72-5.28); RED CELL DISTRIBUTION WIDTH 16.5 % (11.5-14.0); WHITE BLOOD COUNT 8.4 10^3/uL (4.0-10.5)
[2017-04-08 05:05] LABS: PROTHROMBIN TIME 14.2 SEC (11.4-15.4)
[2017-04-08 05:26] LABS: ALANINE AMINOTRANSFERASE 682 U/L (9-52); ALKALINE PHOSPHATASE 138 U/L (38-126); ANION GAP 8 (5-19); ASPARTATE AMINO TRANSFERASE 639 U/L (14-36); BILIRUBIN,DIRECT 9.4 mg/dL (0.0-0.4); BLOOD UREA NITROGEN 10 mg/dL (7-20); CALCIUM 8.6 mg/dL (8.4-10.2); CARBON DIOXIDE 25 mmol/L (22-30); CHLORIDE 107 mmol/L (98-107); GLUCOSE 103 mg/dL (75-110); LIPASE 136.9 U/L (23-300); SODIUM 140.3 mmol/L (137-145); TOTAL PROTEIN 6.3 g/dL (6.3-8.2)
[2017-04-08 05:36] LABS: BILIRUBIN,TOTAL 10.8 mg/dL (0.2-1.3)
--- NOTE | 2017-04-08 09:50 | PDOC PROGRESS REPORT ---
Subjective Progress Note for:: 04/08/17 Subjective:: Further decline in her liver functions are noted this morning with a total bilirubin trending down. She may have acute hepatitis C as a cause for her abnormal liver functions along with her jaundice. She can be followed as an outpatient after no other issues We will need Fibrosure test to be done. She may be a candidate for Harvoni treatment. Physical Exam Vital Signs: Temp Pulse Resp BP Pulse Ox 97.7 F 63 17 114/92 H 99 04/08/17 07:28 04/08/17 07:28 04/08/17 07:28 04/08/17 07:28 04/08/17 07:28 Intake & Output 04/07/17 04/08/17 04/09/17 06:59 06:59 06:59 Intake Total 1600 2847 Balance 1600 2847 Weight 82.4 kg 83.2 kg General appearance: PRESENT: no acute distress, well-developed, well-nourished Head exam: PRESENT: atraumatic, normocephalic Eye exam: PRESENT: EOMI, PERRLA, scleral icterus Mouth exam: PRESENT: moist, neck supple Throat exam: ABSENT: tonsillar exudate, tonsillogmegaly Neck exam: ABSENT: meningismus, tenderness, thyromegaly Respiratory exam: PRESENT: clear to auscultation wicho, symmetrical, unlabored. ABSENT: tachypnea Cardiovascular exam: PRESENT: RRR, +S1, +S2 Pulses: PRESENT: normal carotid pulses GI/Abdominal exam: PRESENT: soft. ABSENT: Gonzalez's sign, rebound, rigid, tenderness Musculoskeletal exam: PRESENT: full ROM Neurological exam: PRESENT: alert, awake, oriented to time, oriented to situation, reflexes normal, CN II-XII grossly intact Skin exam: PRESENT: jaundice. ABSENT: mottled, urticaria, vesicles Results Laboratory Results: 04/08/17 04:47 04/08/17 04:42 04/07/17 04/07/17 04/08/17 12:40 12:40 04:42 WBC RBC Hgb Hct MCV MCH MCHC RDW Plt Count Sodium 140.3 Potassium 4.0 Chloride 107 Carbon Dioxide 25 Anion Gap 8 BUN 10 Creatinine 0.60 Est GFR ( Amer) > 60 Est GFR (Non-Af Amer) > 60 Glucose 103 Calcium 8.6 Total Bilirubin 10.8 H D AST 639 H ALT 682 H Alkaline Phosphatase 138 H Total Protein 6.3 Albumin 3.0 L Lipase 136.9 Stool Occult Blood NEGATIVE Stool for White Cells NO WBCs SEEN 04/08/17 04:47 WBC 8.4 RBC 4.04 Hgb 11.9 L Hct 35.4 L MCV 88 MCH 29.5 MCHC 33.7 RDW 16.5 H Plt Count 299 Sodium Potassium Chloride Carbon Dioxide Anion Gap BUN Creatinine Est GFR ( Amer) Est GFR (Non-Af Amer) Glucose Calcium Total Bilirubin AST ALT Alkaline Phosphatase Total Protein Albumin Lipase Stool Occult Blood Stool for White Cells 04/06/17 16:43 Creatine Kinase 26 L Impressions: Abdomen MRI 04/06/17 00:00 IMPRESSION: NORMAL HEPATOBILIARY SYSTEM. NO STONES OR COMMON DUCT ABNORMALITIES. Abdomen Ultrasound 04/06/17 11:38 IMPRESSION: NORMAL RIGHT UPPER QUADRANT ULTRASOUND. Assessment & Plan - Diagnosis (1) Jaundice Plan: Hepatitis C antibody positive. HCV RNA is pending along with genotype We will get Fibrosure May be a candidate for treatment of hepatitis C ,rest of the studies appear to be negative at this point; some are still pending Continue to follow If discharge can follow as outpatient - Time Time Spent with patient: 15-24 minutes
[2017-04-08] MEDS: SERTRALINE HCL 50 MG TABLET PO SCH (11:24)
[2017-04-08] MEDS: LACTOBACILLUS ACIDOPHILUS 250 MG TAB PO SCH ×2 (11:25→17:29)
[2017-04-08] MEDS: OXCARBAZEPINE 150 MG TABLET PO SCH ×2 (11:25→17:29)
[2017-04-08] MEDS: TRAZODONE HCL 50 MG TABLET PO SCH (11:26)
--- NOTE | 2017-04-08 15:43 | PROGRESS NOTE E ---
Progress Note NAME: CHEYANNE MONTEMAYOR : 1975 AGE: 41Y DATE: 04/08/2017 ROOM: 436 SUBJECTIVE: The patient is lying in bed. She states she has been very nauseous today, has had a lot of pain with ambulation. The patient has been quite tearful at the evidence of hepatitis C. I did explain the difference in hepatitis-C antibodies versus the active disease. However, given the patient's clinical picture, it does appear to be an acute case of hepatitis C. The patient is understanding of this, however, she also complains of nasal and sinus congestion which is new, and the patient does not voice any other concerns at this time. REVIEW OF SYSTEMS: The rest of the review of systems is negative. MEDICATIONS: Medications have been reviewed. OBJECTIVE: GENERAL: The patient is a 41-year-old female who is awake, alert and oriented to person, place, time, and situation. She is verbal, conversational, does not appear to be in any distress. VITAL SIGNS: As follows: Temperature is 97.9, pulse 61, respirations 18, blood pressure is 111/76, oxygen saturation 97% on room air. SKIN: Warm and dry. No rash. Not diaphoretic. The patient has still jaundice but improved. HEENT: Pupils equal, round, reactive to light and accommodation. Sclera is clearing of its icterus. CARDIOVASCULAR SYSTEM: Heart is regular. There is no murmur or rub. CHEST: Clear, symmetrical, unlabored. ABDOMEN: Soft, nontender, nondistended. BACK: No CVA tenderness, sacral edema. EXTREMITIES: No clubbing, cyanosis, edema. PSYCHIATRIC: Appropriate affect. Pleasant mood. DIAGNOSTICS: Lab values are as follows: Hematology obtained on hematology on 04/08/2017; WBCs are 8.4, hemoglobin is 11.9, hematocrit is 35.4, platelet count is 299,000. Chemistry obtained on 04/08/2017: Sodium is 140, potassium 4.0, chloride is 107, carbon dioxide 25, BUN 10, creatinine is 0.60, glucose 103, calcium is 8.6, bilirubin is 10.8, AST is 639, ALT is 682, alkaline phosphatase 138, CK 26, total protein 6.3, albumin 3.0, lipase is 136. IMPRESSION AND PLAN: 1. ACUTE HEPATITIS, MOST LIKELY HEPATITIS C. The patient still feels quite poorly and has had a significant amount of nausea with limited p.o. intake, therefore will continue supportive therapy of IV antibiotics, antiemetics, and probiotic therapy and monitor for another day. 2. TOBACCO DEPENDENCE. She will continue p.r.n. nicotine patch. 3. ANXIETY. Will continue home medications. 4. DVT PROPHYLAXIS. The patient is ambulatory. Will continue LUDWIG hose and encourage the patient to ambulate in the hallway. DISPOSITION: The patient is a FULL CODE. Pending patient's symptomatology and diagnostic findings, will re-evaluate in the a.m. Time spent on this followup including assessment, plan, physical examination, patient education, and much discussion is 35 minutes. DICTATING PHYSICIAN: PATI EAGLE NP [id number] PHY#: [id number] ID: [id number] JOB#: [id number] ACCT: [id number] cc:PATI EAGLE NP >
[2017-04-08] MEDS: NICOTINE 21 MG/24 HR PATCH.TD24 TD PRN (17:29)
[2017-04-09] MEDS: ONDANSETRON HCL INJ/PF 4 MG/2 ML SDV IV PRN ×2 (02:15→06:30)
[2017-04-09] MEDS: OXYCODONE HCL IR 5 MG TABLET PO PRN ×2 (02:15→06:30)
[2017-04-09 05:44] LABS: ALANINE AMINOTRANSFERASE 641 U/L (9-52); ALBUMIN 3.2 g/dL (3.5-5.0); ALKALINE PHOSPHATASE 160 U/L (38-126); ANION GAP 10 (5-19); ASPARTATE AMINO TRANSFERASE 657 U/L (14-36); BILIRUBIN,DIRECT 6.5 mg/dL (0.0-0.4); BILIRUBIN,TOTAL 7.8 mg/dL (0.2-1.3); BLOOD UREA NITROGEN 10 mg/dL (7-20); CALCIUM 8.6 mg/dL (8.4-10.2); CARBON DIOXIDE 26 mmol/L (22-30); CHLORIDE 105 mmol/L (98-107); CREATININE RESULT 0.59 mg/dL (0.52-1.25); GLUCOSE 103 mg/dL (75-110); POTASSIUM 3.7 mmol/L (3.6-5.0); SODIUM 140.8 mmol/L (137-145); TOTAL PROTEIN 6.9 g/dL (6.3-8.2)
[2017-04-09 09:04] VITALS: BP 111/87
[2017-04-09] MEDS: LACTOBACILLUS ACIDOPHILUS 250 MG TAB PO SCH (09:30)
[2017-04-09] MEDS: OXCARBAZEPINE 150 MG TABLET PO SCH (09:30)
[2017-04-09] MEDS: SERTRALINE HCL 50 MG TABLET PO SCH (09:31)
[2017-04-09] MEDS: TRAZODONE HCL 50 MG TABLET PO SCH (09:31)
--- NOTE | 2017-04-09 09:53 | DISCHARGE SUMMARY E ---
Discharge Summary NAME: CHEYANNE MONTEMAYOR : 1975 AGE: 41Y ADMITTED: 04/06/2017 DISCHARGED: 04/09/2017 CODE STATUS: FULL CODE. PRIMARY CARE PROVIDER: '[facility]. 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 Thakkar DISCHARGE DIAGNOSES: 1. ACUTE HEPATITIS. 2. POSITIVE HEPATITIS C ANTIBODIES WITH HIGH SUSPICION FOR ACUTE HEPATITIS. 3. TOBACCO DEPENDENCE. 4. ANXIETY. DISCHARGE MEDICATIONS: Include: 1. Ultram 50 mg p.o. q.4 hours, 20 tablets, 0 refill. 2. Zofran ODT 1-2 tablets sublingual q.4 hours p.r.n. 3. Ambien 5 mg p.o. at bedtime. 4. Trazodone 50 mg p.o. daily. 5. Trazodone 50 mg p.o. at bedtime. 6. Zoloft 50 mg p.o. daily. 7. Seroquel 50 mg at bedtime. 8. Trileptal 150 mg p.o. b.i.d. 9. Valium 10 mg p.o. 3 times a day p.r.n. 10. Adderall 30 mg p.o. daily p.r.n. DIET: As tolerated. ACTIVITY: As tolerated. DIAGNOSTICS: Lab values are as follows: Hematology on 04/08/2017, WBC 8.4, hemoglobin 12.9, hematocrit 35.4, platelet count 299,000. Coagulation done 04/08/2017: PT 14.2, INR 1.03. Chemistry obtained on 04/09/2017: Sodium 140, potassium 4.0, chloride 107, carbon dioxide 25, BUN 10, creatinine 0.59, glucose 103, calcium 8.6, total bilirubin 7.8, direct bilirubin 6.5, AST 607, ALT 641, alkaline phosphatase 160, ammonia 7.4, CK 26, total protein 6.9, albumin 3.2, lipase 136.9, immunoglobulin-G 1119. Urinalysis obtained on 04/06/2017: Color sia, appearance slightly cloudy, pH 6.0, specific gravity is 1.020, protein negative, glucose negative, ketones negative, occult blood small, nitrite negative, bilirubin moderate, urobilinogen 4.0, leukocyte esterase is trace, WBC 15, RBC 3, bacteria trace, epithelial squamous 15, mucus rare, ascorbic acid is negative. Obtained on 04/07/2017: Stool for occult blood is negative. Stool for WBC negative. Toxicology obtained on 04/06/2017 positive for opiates, benzo. Tylenol level less than 10. Immunology obtained 04/07/2017: Mitochondrial MT2 antibody is pending. Serology obtained on 04/06/2017: Hepatitis negative except for hep-C antibody is positive, greater than 11. RCA and genotype pending. Microbiology: Stool culture obtained on 04/07/2017 has no growth. Abdominal MRI obtained on 04/06/2017: MRCP revealed normal hepatobiliary system. No stones or bile duct abnormalities. Abdominal ultrasound obtained on 04/06/2017: Revealed a normal right upper quadrant ultrasound. PHYSICAL EXAMINATION: GENERAL: The patient is well developed, well nourished 41-year-old female, who is awake, alert, and oriented to person, place, time, and situation. She is verbal, conversational, ambulatory, does not appear to be in any acute distress. VITAL SIGNS: As follows: Temperature is 97.9, pulse 67, respirations 18, blood pressure is 111/87, oxygen saturation is 98% on room air. SKIN: Jaundiced. Warm and dry. No rash. Not diaphoretic, but overall improved in comparison to admission. HEENT: Pupils are equal, round, reactive to light and accommodation. Scleral icterus is clearing. No JVP. CARDIOVASCULAR: Heart is regular with no murmur or rub. CHEST: Clear, symmetrical, unlabored. ABDOMEN: Soft, nontender, nondistended. Bowel sounds are present. BACK: No CVA tenderness or sacral edema. EXTREMITIES: No clubbing, cyanosis, edema. PSYCHIATRIC: Appropriate affect. Pleasant mood. DISCHARGE PLAN: The patient is advised to follow with Dr. Thakkar within the next 1-2 weeks for hospital followup to follow up on outstanding labs and to proceed with treatment. TIME SPENT: On this discharge including assessment, plan, physical examination and patient education is 20 minutes. DICTATING PHYSICIAN: PATI EAGLE NP [id number] PHY#: [id number] ID: [id number] JOB#: [id number] ACCT: [id number] cc:WILL METCALF M.D. PATI EAGLE NP >
[2017-04-10 03:36] LABS: HEPATITIS C QUANTITATION 940000 IU/mL (.)
== END 2017-04-09 10:37 | disposition home or self-care (01) | DRG 442 ==
LOC: ER 10:36 → EH 14:41 → UNDOADMIN 15:10 → 4S 17:25
PROVIDERS: ADMIT Internal Medicine; ATTEND Internal Medicine
DX: B17.10 Acute hepatitis C without hepatic coma (principal); R17 Unspecified jaundice; M79.7 Fibromyalgia; F41.9 Anxiety disorder, unspecified; F90.9 Attention-deficit hyperactivity disorder, unspecified type; F17.210 Nicotine dependence, cigarettes, uncomplicated
CPT/HCPCS: 36415; 74181; 76705; 80053; 80074; 80307; 81001; 82140; 82272; 82550; 82784; 83690; 85025; 85027; 85610; 86256; 87045; 87205; 87493; 87522; 89055; 96361; 96374; 96375; 96376; 99285; J1170; J1885; J2405; J3490; J7030